=== PATIENT | female | born 1980 | race Two or more races ===

== ENCOUNTER → 2024-11-29 | Outpatient (CLI) | payer MEDICAID, SELFPAY ==
--- NOTE | 2024-11-29 09:34 | XR_ITS ---
Examination: Lumbar spine, 5 views Technique: Lumbar spine AP, lateral, coned lateral lower lumbar spine, bilateral obliques 5 views Exam date and time: November 29, 2024 0946 hours INDICATIONS: Severe lower back pain beginning 2 weeks ago. FINDINGS: Patient motion degrades scan image quality No lumbar fracture Diffuse [id number] lumbar disc narrowing, most prominent at L5-S1 No spondylolisthesis Mild lumbar spondylosis Minimal chronic wedging T11 IMPRESSION: No lumbar fracture Diffuse [id number] lumbar degenerative disc disease most prominent at L5-S1
== END | disposition home or self-care (01) ==
PROVIDERS: PCP Physician Assistant; Referring Provider Physician Assistant; Visit Provider Physician Assistant
DX: M51.360 Other intervertebral disc degeneration, lumbar region with discogenic back pain only (principal); M51.370 Other intervertebral disc degeneration, lumbosacral region with discogenic back pain only
CPT/HCPCS: 72110

== ENCOUNTER → 2025-01-09 | Outpatient (CLI) | payer MEDICAID, SELFPAY ==
--- NOTE | 2025-01-09 10:30 | XR_ITS ---
Examination: Breast ultrasound complete, bilateral Date and time of exam: January 09, 2025 1049 hours INDICATIONS: Nipple discharge beginning several years ago Technique: Real-time grayscale ultrasonographic imaging bilateral breasts, including all 4 quadrants as well as nipple retroareolar and axillary regions. Findings: Sonographic images right breast 12:00 nodule lobular margins 4 x 4 millimeter Sonographic images left breast No cystic or solid mass IMPRESSION: BI-RADS Category 3: Probably benign findings Recommend 1 additional right breast sonogram follow-up to document stability of 2:00 nodule right breast
--- NOTE | 2025-01-09 11:45 | XR_ITS ---
Examination: Diagnostic digital mammography, bilateral Computer aided detection 3-D breast Tomosynthesis, bilateral Date and time of exam: January 09, 2025 1113 hours, compared to mammograms dating to August 07, 2018 Technique: Nonmagnified MLO, CC views of the breasts to been obtained, reconstructed from 3-D Tomosynthesis images. R2 computer aided detection program utilized for evaluation of suspicious masses and/or abnormal calcifications. 3-D Tomosynthesis images obtained. Findings: The breasts are heterogeneously dense, which may obscure small masses 6 mm nodular asymmetry upper outer right breast mid to posterior depth Impression: BI-RADS Category 0: Incomplete: Need additional imaging evaluation Recommend follow-up spot tomographic views of 6 mm nodular asymmetry upper outer right breast as well as right breast sonography to complete the workup.
== END | disposition home or self-care (01) ==
PROVIDERS: PCP Physician Assistant; Referring Provider Physician Assistant; Visit Provider Physician Assistant
DX: N64.89 Other specified disorders of breast (principal); N63.12 Unspecified lump in the right breast, upper inner quadrant
CPT/HCPCS: 76641; 77062; 77066; G0279

== ENCOUNTER → 2025-04-23 | Outpatient (CLI) | payer MEDICAID, SELFPAY ==
--- NOTE | 2025-04-23 08:11 | XR_ITS ---
Examination: Diagnostic digital mammography, unilateral, right Computer aided detection 3-D breast Tomosynthesis, unilateral Date and time of exam: April 23, 2025, 0815 hours INDICATIONS: Mammogram 01/09/2025 6 mm nodular asymmetry upper outer right breast mid to posterior depth Technique: Nonmagnified MLO, CC views of the right breast have been obtained, reconstructed from 3-D Tomosynthesis images. R2 computer aided detection program utilized for evaluation of suspicious masses and/or abnormal calcifications. 3-D Tomosynthesis images obtained. Findings: The breasts are heterogeneously dense, which may obscure small masses Focal asymmetry outer right breast remains on the spot compression CC view Impression: BI-RADS category 3: Probably benign findings Recommend 1 additional 6-month right mammogram follow-up to document stability of focal asymmetry described above
== END | disposition home or self-care (01) ==
LOC: CDIM 08:07
PROVIDERS: Referring Provider Physician Assistant; Visit Provider Physician Assistant
DX: R92.331 Mammographic heterogeneous density, right breast (principal); N64.89 Other specified disorders of breast
CPT/HCPCS: 77061; 77065; G0279